=== PATIENT | female | born 1975 | race Caucasian/White ===

== ENCOUNTER 2021-08-12 12:40 | Outpatient (CLI) | payer OTHER ==
[~2021-08-12 12:40] MED LIST: OMEPRAZOLE40 MG PO; PERCOCET 5/3251 TAB PO; POLY119PG PO; SURFAK240 M1 PO
== END 2021-08-12 12:42 | disposition home or self-care (01) ==
LOC: NUCLEAR 12:40
PROVIDERS: ATTEND Internal Medicine Sports Medicine
DX: E05.80 Other thyrotoxicosis without thyrotoxic crisis or storm (principal)
CPT/HCPCS: 79005; A9517